=== PATIENT | female | born 1945 | race Two or more races ===

== ENCOUNTER 2022-12-25 05:00 | Inpatient (IN) | payer OTHER ==
[~2022-12-25] VITALS: Ht 157.5 cm; Wt 56.7 kg
[~2022-12-25 05:00] MED LIST: LEVO-T88 MCG PO; VALSARTAN320 MG PO
== END 2022-12-26 17:38 | disposition home or self-care (01) | DRG 328 ==
LOC: CIR.AMB 05:00 → O/R 12:16 → SURH 12:16
PROVIDERS: ADMIT Surgery; ATTEND Surgery
PROC: 8E0W4CZ Robotic Assisted Procedure of Trunk Region, Percutaneous Endoscopic Approach (ICD-10-PCS; 2022-12-25)
PROC: 0BQT4ZZ Repair Diaphragm, Percutaneous Endoscopic Approach (ICD-10-PCS; principal; 2022-12-25 08:30)
DX: K44.9 Diaphragmatic hernia without obstruction or gangrene (principal); Z20.822 Contact with and (suspected) exposure to COVID-19